=== PATIENT | female | born 1955 | race Two or more races ===

== ENCOUNTER 2023-02-11 21:59 | Emergency (ER) | payer MEDICAID, OTHER ==
[~2023-02-11] VITALS: Ht 160 cm; Wt 52.0 kg
[2023-02-12] MEDS ORDERED: DexAMETHasone 4 MG TAB PO ONE
[2023-02-12] MEDS ORDERED: HYDROcodone-ACET 5/325MG TAB PO ONE
[2023-02-12] MEDS ORDERED: TRAM50TA2 PO ×2 (00:03→00:11)
[2023-02-12 00:29] VITALS: BP 113/69; PULSE 80; RESP 20; TEMP 98; O2SAT 98
[2023-02-12] MEDS ORDERED: ACETAMINOPHEN/CODEINE#3 (300/30mg) TAB PO ONE (00:30)
[2023-02-12] MEDS ORDERED: ACE3T PO (00:32)
== END 2023-02-12 00:57 | disposition home or self-care (01) ==
LOC: ER 21:59 → EDBD 21:59 → ER 02-12 00:57
DX: S33.5XXA Sprain of ligaments of lumbar spine, initial encounter (principal); R06.02 Shortness of breath; I10 Essential (primary) hypertension; Z79.1 Long term (current) use of non-steroidal anti-inflammatories (NSAID); Z79.899 Other long term (current) drug therapy; V89.2XXA Person injured in unspecified motor-vehicle accident, traffic, initial encounter; Y93.89 Activity, other specified; Y92.89 Other specified places as the place of occurrence of the external cause; Y99.8 Other external cause status
CPT/HCPCS: 72131; 93005; 99284; J8540

== ENCOUNTER 2023-04-16 21:52 | Emergency (ER) | payer MEDICAID ==
[~2023-04-16] VITALS: Ht 160 cm; Wt 47.6 kg
[~2023-04-16 21:52] MED LIST: ACE3T PO; TRAM50TA2 PO
[2023-04-16 22:30] VITALS: BP 134/63; PULSE 77; RESP 16; TEMP 98; O2SAT 97
== END 2023-04-17 00:38 | disposition home or self-care (01) ==
LOC: ER 21:52
DX: I10 Essential (primary) hypertension (principal); Z48.00 Encounter for change or removal of nonsurgical wound dressing